=== PATIENT | male | born 1995 | race Caucasian/White ===

== ENCOUNTER 2017-10-09 15:55 | Emergency (ER) | payer OTHER ==
[2017-10-09] MEDS ORDERED: Ondansetron INJ* 2 MG/ML VIAL IV ONE ×2 (17:56→18:34)
[2017-10-09] MEDS ORDERED: Metoclopramide IV* 5 MG/ML 2 ML VIAL IV ONE (17:58)
[2017-10-09] MEDS ORDERED: Ketorolac INJ* 30 MG/ML 1 ML VIAL IV PUSH ONE (18:03)
[2017-10-09] MEDS ORDERED: Ketorolac INJ* 30 MG/ML 1 ML VIAL ONE (18:05)
[2017-10-09] MEDS: NS 0.9% 1000 ML* 2,000 ML IV ONE (18:19)
[2017-10-09 18:32] LABS: Hematocrit 44 % (42-52); Hemoglobin 15.1 g/dl (14.0-18.0); Mean Corpuscular HGB Conc 34 g/dl (31-36); Mean Corpuscular Hemoglobin 30 pg (27-31); Mean Corpuscular Volume 87 fL (80-94); Mean Platelet Volume 9 um3 (7.4-10.4); Red Blood Count 5.01 10^6/ul (4.0-5.4); Red Cell Distribution Width 14 % (10.5-15); White Blood Count 15.1 10^3/ul (3.5-10.8)
[2017-10-09 18:47] LABS: ALT 26 U/L (7-52); AST 18 U/L (13-39); Albumin 4.8 g/dL (3.2-5.2); Alkaline Phosphatase 84 U/L (34-104); Anion Gap 10 mmol/L (2-11); BUN/Creatinine Ratio 14.6 (8-20); Blood Urea Nitrogen 15 mg/dL (6-24); C Reactive Protein 17.16 mg/L (< 5.00); CO2 Carbon Dioxide 21 mmol/L (22-32); Calcium 9.8 mg/dL (8.6-10.3); Chloride 110 mmol/L (101-111); EGFR African American 117.2 (>60); EGFR Non-African American 91.2 (>60); Globulin 3.2 g/dL (2-4); Glucose 104 mg/dL (70-100); Lipase < 10 U/L (11.0-82.0); Magnesium 2.2 mg/dL (1.9-2.7); Potassium 3.5 mmol/L (3.5-5.0); Sodium 141 mmol/L (133-145)
--- NOTE | 2017-10-09 19:23 | ED ---
Abdominal Pain/Male - HPI Summary HPI Summary: 22 male presents to ED with complaints of diffuse abdominal pain that began today and has been ongoing for the past 7-8 hours, sent over from [facility]. Patient states pain is intermittent and gets very sharp/shooting at times. States pain sometimes localizes to center of stomach around umbilicus. Did have some radiation into back, but has not had it since. Pain is accompanied with 1 episode of vomiting (forced) and diarrhea. Denies any notable blood. Admits to eating at [employer] last night, no recent travel or antibiotic use. Patient states he does have intermittent diarrhea chronically, related to anxiety however has never had associated pain as he is today. Denies urinary symptoms other than having dark brown colored urine earlier today. States he was recently started on prednisone for his URI exacerbating his asthma. Began the prednisone yesterday. Denies fever/chills, sore throat, chest pain. Patient does admit to having some difficulty breathing, due to recent URI/ asthma exacerbation, but nothing new. PMHx significant for migraines, insomnia and asthma. Attempted to take gas-x and tums earlier today, however vomited it up shortly after. No other complaints. Last normal bowel movement was yesterday. - History of Current Complaint Chief Complaint: EDAbdPain Stated Complaint: ABD PAIN,V/D Time Seen by Provider: 10/09/17 17:48 Hx Obtained From: Patient Onset/Duration: Sudden Onset, Lasting Hours, Still Present, Worse Since Timing: Intermittent, Lasting Minutes Severity Initially: Mild Severity Currently: Moderate Pain Intensity: 8 Pain Scale Used: 0-10 Numeric Location: Diffuse, Umbilical Radiates to: Back - "one time" Character: Sharp, Cramping Aggravating Factor(s): Nothing Alleviating Factor(s): Nothing Associated Signs And Symptoms: Positive: Urinary Symptoms - dark brown colored urine, Nausea, Vomiting, Diarrhea - Allergies/Home Medications Allergies/Adverse Reactions: Allergies Allergy/AdvReac Type Severity Reaction Status Date / Time No Known Allergies Allergy Verified 10/09/17 16:04 PMH/Surg Hx/FS Hx/Imm Hx Endocrine/Hematology History: Denies: Hx Diabetes Cardiovascular History: Denies: Hx Hypertension Respiratory History: Reports: Hx Asthma GI History: Reports: Other GI Disorders - chronic diarrhea associated with anxiety Neurological History: Reports: Other Neuro Impairments/Disorders - vertigo Psychiatric History: Reports: Hx Anxiety - Surgical History Surgery Procedure, Year, and Place: n/a - Immunization History Immunizations Up to Date: Yes Infectious Disease History: No Infectious Disease History: Denies: Traveled Outside the [place] in Last 30 Days - Family History Known Family History: Positive: None - reviewed & noncontributory - Social History Alcohol Use: None Hx Substance Use: No Substance Use Type: Reports: None Hx Tobacco Use: No Smoking Status (MU): Never Smoked Tobacco Review of Systems Constitutional: Negative Positive: Nasal Discharge - congestion Cardiovascular: Negative Positive: Shortness Of Breath, Cough Positive: Abdominal Pain, Vomiting, Diarrhea, Nausea Positive: see HPI - dark brown colored urine Skin: Negative Neurological: Negative All Other Systems Reviewed And Are Negative: Yes Physical Exam Triage Information Reviewed: Yes Vital Signs On Initial Exam: Initial Vitals Temp Pulse Resp BP Pulse Ox 99.0 F 100 17 147/87 98 10/09/17 15:57 10/09/17 15:57 10/09/17 15:57 10/09/17 15:57 10/09/17 15:57 Vital Signs Reviewed: Yes Appearance: Positive: Well-Nourished, Ill-Appearing, Pain Distress - mild Skin: Positive: Warm, Skin Color Reflects Adequate Perfusion, Dry. Negative: Cold, Numb, Cyanosis @, Jaundiced, Pale, Erythema @ Head/Face: Positive: Normal Head/Face Inspection Eyes: Positive: EOMI, KAYCE, Conjunctiva Clear ENT: Positive: Hearing grossly normal, Pharynx normal, TMs normal Dental: Negative: Cervical Lymphadenopathy Neck: Positive: Supple, Nontender, No Lymphadenopathy Respiratory/Lung Sounds: Positive: Clear to Auscultation, Breath Sounds Present , Wheezes - diffuse. Negative: Rales, Rhonchi, Unable to speak in full sentences, Fatigue Cardiovascular: Positive: Normal, RRR, Pulses are Symmetrical in both Upper and Lower Extremities. Negative: Murmur, Rub Abdomen Description: Positive: No Organomegaly, Soft, Guarding, Other: - diffuse tenderness. Negative: Bruit, CVA Tenderness (R), CVA Tenderness (L), Distended, McBurney's Point Tenderness, Peritoneal Signs, Pulsatile Mass Bowel Sounds: Positive: Present, Hypoactive Musculoskeletal: Positive: Normal, Strength/ROM Intact Neurological: Positive: Normal, Sensory/Motor Intact, Alert, Oriented to Person Place, Time - Renee Coma Scale Coma Scale Total: 15 Diagnostics - Vital Signs Vital Signs Temp Pulse Resp BP Pulse Ox 10/09/17 18:30 82 130/72 97 10/09/17 18:00 78 132/72 97 10/09/17 17:36 102 99 10/09/17 17:33 150/93 10/09/17 15:57 99.0 F 100 17 147/87 98 - Laboratory Lab Results: Lab Results 10/09/17 10/09/17 10/09/17 Range/Units 18:25 18:25 18:25 WBC 15.1 H (3.5-10.8) 10^3/ul RBC 5.01 (4.0-5.4) 10^6/ul Hgb 15.1 (14.0-18.0) g/dl Hct 44 (42-52) % MCV 87 (80-94) fL MCH 30 (27-31) pg MCHC 34 (31-36) g/dl RDW 14 (10.5-15) % Plt Count 255 (150-450) 10^3/ul MPV 9 (7.4-10.4) um3 Neut % (Auto) 85.9 H (38-83) % Lymph % (Auto) 6.5 L (25-47) % [place] % (Auto) 7.1 (1-9) % Eos % (Auto) 0 (0-6) % Baso % (Auto) 0.5 (0-2) % Absolute Neuts (auto) 12.9 H (1.5-7.7) 10^3/ul Absolute Lymphs (auto) 1.0 (1.0-4.8) 10^3/ul Absolute Monos (auto) 1.1 H (0-0.8) 10^3/ul Absolute Eos (auto) 0 (0-0.6) 10^3/ul Absolute Basos (auto) 0.1 (0-0.2) 10^3/ul Absolute Nucleated RBC 0 10^3/ul Nucleated RBC % 0 Sodium 141 (133-145) mmol/L Potassium 3.5 (3.5-5.0) mmol/L Chloride 110 (101-111) mmol/L Carbon Dioxide 21 L (22-32) mmol/L Anion Gap 10 (2-11) mmol/L BUN 15 (6-24) mg/dL Creatinine 1.03 (0.67-1.17) mg/dL Est GFR ( Amer) 117.2 (>60) Est GFR (Non-Af Amer) 91.2 (>60) BUN/Creatinine Ratio 14.6 (8-20) Glucose 104 H (70-100) mg/dL Lactic Acid 0.9 (0.5-2.0) mmol/L Calcium 9.8 (8.6-10.3) mg/dL Magnesium 2.2 (1.9-2.7) mg/dL Total Bilirubin 0.40 (0.2-1.0) mg/dL AST 18 (13-39) U/L ALT 26 (7-52) U/L Alkaline Phosphatase 84 (34-104) U/L C-Reactive Protein 17.16 H (< 5.00) mg/L Total Protein 8.0 (6.4-8.9) g/dL Albumin 4.8 (3.2-5.2) g/dL Globulin 3.2 (2-4) g/dL Albumin/Globulin Ratio 1.5 (1-3) Lipase < 10 L (11.0-82.0) U/L Result Diagrams: 10/09/17 18:25 10/09/17 18:25 Lab Statement: Any lab studies that have been ordered have been reviewed, and results considered in the medical decision making process. - CT abd/pelvis CT Interpretation: No Acute Changes - Normal CT examination. CT Interpretation Completed By: Radiologist Re-Evaluation - Re-Evaluation First Eval Re-Evaluation Time: 20:20 Change: Improved - had relief from n/v and pain after medication and fluids. updated on lab findings and obtaining CT Second Eval Re-Evaluation Time: 21:27 Change: Improved - pain 3/10 improved, feeling better. updated on imaging and lab findings. ready to be d/c Abdominal Pain Fem Course/Dx - Course Course Of Treatment: labs and urinalysis obtained. given fluids, zofran and toradol. had relief. labs shows elevated WBC with left shift, elevated CRP. CT abd/pelvis obtained and unremarkable. blood and calcium crystals in urine appear to possibly have been renal calculi. patient was unable to provide stool sample during visit, sent home with collection cup. refused rectal. Appears to be suffering bacterial URI/bronchitis additionally potential cause of elevated WBC with left shift, as no concern for abdominal/urinary tract infection at this time. patient does get diarrhea with anxiety and forcefully vomited. denies additional episodes other than the 1 time of each. possibly related to the pain. no concern for other emergent etiology at this time. will treat URI with azithromycin. chest xray did not appear necessary at this time, normal vitals, no change in treatment plan. aware of worsening signs and symptoms. increase fluid intake, rest and follow up within 3- 5 days. continue flonase and prednisone previously prescribed. patient agrees and understands. all questions answered. azithromycin was given through written script due to patient 's pharmacy being closed today and tomorrow to treat bronchitis/URI. Spoke with Dr Yanes about case who agrees, no further testing/imaging required at this time , agrees with treatment plan. - Diagnoses Differential Diagnosis/HQI/PQRI: Appendicitis, Constipation, Diverticulitis, Gall Bladder Disease, Pancreatitis, Renal Colic, Ureteral Stone, Urinary Tract Infection, Other - abdominal pain, gastroenteritis, colitis, bacterial URI Provider Diagnoses: Abdominal pain, Upper respiratory infection - Provider Notifications Discussed Care Of Patient With: Dr Yanes, spoke with about case Discharge - Discharge Plan Condition: Stable Disposition: HOME Patient Education Materials: Kidney Stones (ED), Acute Abdominal Pain (ED), Upper Respiratory Infection (ED), Acute Bronchitis (ED) Referrals: [facility] - MRDamaso [Primary Care Provider] - Additional Instructions: Take prescribed medication as directed. Continue taking previously prescribed prednisone, inhaler and flonase as directed for bronchitis/URI exacerbating asthma. Drink plenty of fluids. Rest. Any new or worsening symptoms please seek medical attention promptly, as discussed. (worsening pain, fever, abnormal colored urine, difficulty breathing , etc) Follow up with Health center in 3-5 days to ensure improvement. Sooner if any concerns.
[2017-10-09] MEDS ORDERED: Iohexol 300* (CONTRAST) 10 ML SDV IV ONE ×2 (19:27→20:20)
[2017-10-09 19:50] LABS: Urine Bacteria Absent (Absent); Urine Bilirubin Negative (Negative); Urine Glucose Negative (Negative); Urine Nitrite Negative (Negative)
--- NOTE | 2017-10-09 20:46 | RAD ---
CLINICAL HISTORY: Abdominal pain, vomiting and diarrhea COMPARISON: None TECHNIQUE: Contrast enhanced CT examination of the abdomen and pelvis from the lung bases through the initial tuberosities. The patient received 100 mL Omnipaque 300 intravenously prior to imaging.The patient received oral contrast as well prior to imaging. FINDINGS: VISUALIZED LUNG BASES: The visualized lung bases are grossly clear. There is no pleural effusion. ABDOMEN AND PELVIS: The liver, spleen, pancreas and adrenal glands are grossly normal in appearance. The gallbladder is normal. The kidneys are normal in appearance without focal mass, calcification or signs of hydronephrosis. The oral contrast has progressed as far as the rectosigmoid colon. The small and large bowel are not distended. The patient's normal appendix is identified in the right lower quadrant with contrast in the lumen measuring 5 mm in diameter (axial image 42).. There is no gross retroperitoneal or mesenteric lymphadenopathy. The pelvic viscera is normal in appearance. The abdominal aorta and iliac arteries are normal in course and diameter. There are no sinister bone lesions. IMPRESSION: Normal CT examination.
[2017-10-09 22:51] VITALS: BP 149/93
== END 2017-10-09 22:54 | disposition home or self-care (01) ==
LOC: ED 15:55
DX: J06.9 Acute upper respiratory infection, unspecified (principal); R10.9 Unspecified abdominal pain; R11.2 Nausea with vomiting, unspecified; R06.02 Shortness of breath; R05 Cough; R09.81 Nasal congestion
CPT/HCPCS: 36415; 74177; 80053; 81003; 81015; 83605; 83690; 83735; 85025; 86140; 96374; 99283; J1885; J2405; J2765; Q9967

== ENCOUNTER 2017-10-25 18:40 | Emergency (ER) | payer OTHER ==
[2017-10-25] MEDS ORDERED: Metoclopramide IV* 5 MG/ML 2 ML VIAL IV ONE (20:25)
[2017-10-25] MEDS ORDERED: Diphenoxylat/Atrop 2.5-0.025M* 1 TAB PO ONE (20:26)
[2017-10-25] MEDS: NS 0.9% 1000 ML* 2,000 ML IV ONE ×2 (20:47→20:48)
[2017-10-25 20:48] LABS: Hematocrit 46 % (42-52); Hemoglobin 15.2 g/dl (14.0-18.0); Mean Corpuscular HGB Conc 34 g/dl (31-36); Mean Corpuscular Hemoglobin 30 pg (27-31); Mean Corpuscular Volume 89 fL (80-94); Mean Platelet Volume 8 um3 (7.4-10.4); Red Blood Count 5.13 10^6/ul (4.0-5.4); Red Cell Distribution Width 14 % (10.5-15); White Blood Count 5.8 10^3/ul (3.5-10.8)
[2017-10-25 21:03] LABS: Albumin 4.3 g/dL (3.2-5.2); BUN/Creatinine Ratio 9.6 (8-20); C Reactive Protein 23.61 mg/L (< 5.00); Calcium 9.6 mg/dL (8.6-10.3); EGFR African American 115.9 (>60); EGFR Non-African American 90.2 (>60); Globulin 3.2 g/dL (2-4); Potassium 3.3 mmol/L (3.5-5.0); Total Bilirubin 0.4 mg/dL (0.2-1.0); Total Protein 7.5 g/dL (6.4-8.9)
[2017-10-25] MEDS ORDERED: Potassium Chlor TAB* 20 MEQ TAB.ER PO ONE (21:07)
--- NOTE | 2017-10-25 21:37 | ED ---
[place] Almaraz Thomas, scribed for Thalia Brady MD on 10/25/17 at 2035 . GI/ HPI - HPI Summary HPI Summary: The patient is a 22 y/o M presenting to the ED complaining of N/V/D onset 2 days ago. He also c/o fever. He has been taking Tylenol, which he last took 12 hours ago. He went to the [facility] today, where he was given 8mg Zofran to no relief. He has not urinated recently. - History of Current Complaint Chief Complaint: EDNauseaVomitDiarrh Time Seen by Provider: 10/25/17 20:16 Stated Complaint: N/V/D/ABD PAIN Hx Obtained From: Patient Onset/Duration: Started Days Ago - two days ago, Still Present Timing: Constant Severity: Moderate Current Severity: Moderate Pain Intensity: 0 Associated Signs and Symptoms: Positive: Nausea, Vomiting, Diarrhea, Other: - fever Aggravating Factor(s): Nothing Alleviating Factor(s): Nothing - Tylenol and Zofran to no relief - Allergy/Home Medications Allergies/Adverse Reactions: Allergies Allergy/AdvReac Type Severity Reaction Status Date / Time No Known Allergies Allergy Verified 10/09/17 16:04 PMH/Surg Hx/FS Hx/Imm Hx Previously Healthy: Yes Endocrine/Hematology History: Denies: Hx Diabetes Cardiovascular History: Denies: Hx Hypertension Respiratory History: Reports: Hx Asthma GI History: Reports: Other GI Disorders - chronic diarrhea associated with anxiety History: Denies: Hx Renal Disease Neurological History: Reports: Other Neuro Impairments/Disorders - vertigo Psychiatric History: Reports: Hx Anxiety - Surgical History Surgery Procedure, Year, and Place: n/a Infectious Disease History: No Infectious Disease History: Denies: Traveled Outside the [place] in Last 30 Days - Family History Known Family History: Positive: Cardiac Disease, Diabetes Negative: Hypertension, Respiratory Disease - Social History Occupation: Student Lives: Dormitory/Roommates Alcohol Use: None Hx Substance Use: No Substance Use Type: Reports: None Hx Tobacco Use: No Smoking Status (MU): Never Smoked Tobacco Review of Systems Positive: Fever Positive: Vomiting, Diarrhea, Nausea All Other Systems Reviewed And Are Negative: Yes Physical Exam - Summary Physical Exam Summary: VITAL SIGNS: Reviewed. GENERAL: Patient is a well-developed and nourished male who is lying comfortable in the stretcher. Patient is not in any acute respiratory distress. HEAD AND FACE: No signs of trauma. No ecchymosis, hematomas or skull depressions. No sinus tenderness. EYES: PERRLA, EOMI x 2, No injected conjunctiva, no nystagmus. EARS: Hearing grossly intact. Ear canals and tympanic membranes are within normal limits. MOUTH: Oropharynx within normal limits. NECK: Supple, trachea is midline, no adenopathy, no JVD, no carotid bruit, no c- spine tenderness, neck with full ROM. CHEST: Symmetric, no tenderness at palpation LUNGS: Clear to auscultation bilaterally. No wheezing or crackles. CVS: Regular rate and rhythm, S1 and S2 present, no murmurs or gallops appreciated. ABDOMEN: Soft, non-tender. No signs of distention. No rebound no guarding, and no masses palpated. Bowel sounds are normal. EXTREMITIES: FROM in all major joints, no edema, no cyanosis or clubbing. NEURO: Alert and oriented x 3. No acute neurological deficits. Speech is normal and follows commands. SKIN: Dry and warm Triage Information Reviewed: Yes Vital Signs On Initial Exam: Initial Vitals Temp Pulse Resp BP Pulse Ox 98.1 F 81 16 146/92 98 10/25/17 18:56 10/25/17 18:56 10/25/17 18:56 10/25/17 18:56 10/25/17 18:56 Vital Signs Reviewed: Yes Diagnostics - Vital Signs Vital Signs Temp Pulse Resp BP Pulse Ox 10/25/17 18:56 98.1 F 81 16 146/92 98 - Laboratory Result Diagrams: 10/25/17 20:20 10/25/17 20:20 Lab Statement: Any lab studies that have been ordered have been reviewed, and results considered in the medical decision making process. Re-Evaluation - Re-Evaluation First Eval Re-Evaluation Time: 21:15 Change: Improved Comment: The patient is feeling better. GIGU Course/Dx - Course Assessment/Plan: The patient is a 22 y/o M presenting to the ED complaining of N /V/D onset 2 days ago. He also c/o fever. He has been taking Tylenol, which he last took 12 hours ago. He went to the [facility] today, where he was given 8mg Zofran to no relief. He has not urinated recently. In the ED course the patient was given Lomotil, Reglan, and Potassium Chloride. Bloodwork is normal. The patient is diagnosed with viral gastroenteritis. Pt is feeling better and will be discharged home. He is to rest at home for three days. The patient is agreeable with this plan. Reviewed results. - Diagnoses Provider Diagnoses: Viral gastroenteritis Discharge - Discharge Plan Condition: Stable Disposition: HOME Prescriptions: Diphenoxylat/Atrop 2.5-0.025M* [Lomotil TAB*] 1 tab PO TID PRN #10 tab MDD 3 PRN Reason: Loose Bowel Movement Ibuprofen TAB* [Motrin TAB* 800 MG] 800 mg PO ONCE PRN #30 tab PRN Reason: Fever Metoclopramide TAB* [Reglan TAB*] 10 mg PO Q6H PRN #20 tab PRN Reason: Nausea/Vomiting Patient Education Materials: Gastroenteritis (ED) Referrals: [facility] - MRDamaso [Primary Care Provider] - 3 Days Additional Instructions: Follow up at [facility] in three days. Return to the emergency department for any new or worsening symptoms. The documentation as recorded by the [place] laguna Thomas accurately reflects the service I personally performed and the decisions made by , Thalia Brady MD.
[2017-10-25 22:01] LABS: Urine Bacteria Absent (Absent)
[2017-10-25 22:02] LABS: Urine Bilirubin Negative (Negative); Urine Glucose Negative (Negative); Urine Nitrite Negative (Negative)
[2017-10-25 22:15] VITALS: BP 138/84
== END 2017-10-25 22:15 | disposition home or self-care (01) ==
LOC: ED 18:40
DX: A08.4 Viral intestinal infection, unspecified (principal); R11.2 Nausea with vomiting, unspecified; R19.7 Diarrhea, unspecified; R50.9 Fever, unspecified
CPT/HCPCS: 36415; 80053; 81003; 82150; 83690; 85025; 86140; 87493; 96374; 99283; A9270-GY; J2765